=== PATIENT | female | born 2000 | race Two or more races ===

== ENCOUNTER 2024-11-24 15:45 | Emergency (ER) | payer BC ==
[~2024-11-24] VITALS: Ht 160 cm; Wt 78.0 kg
[2024-11-24] MEDS ORDERED: LEXAPRO20 MG (16:12)
[2024-11-24] MEDS ORDERED: FAMOTIDINE/PF 20 MG in 0.9 % SODIUM CHLORIDE 8 ML IV PUSH STA (16:41)
[2024-11-24] MEDS ORDERED: HYOSCYAMINE SULFATE 0.125 MG TAB.SUBL SL ONE (16:45)
[2024-11-24] MEDS ORDERED: 0.9 % SODIUM CHLORIDE 1,000 ML IV SCH (16:45)
[2024-11-24] MEDS ORDERED: ONDANSETRON HCL 2 MG/ML VIAL IV ONE (16:45)
[2024-11-24 17:30] LABS: HEMATOCRIT 33.2 % (36.0-45.00); HEMOGLOBIN 10.8 g/dL (12.0-15.00); MEAN CELL VOLUME 78.4 fL (80.00-100.00); MEAN CORPUSCULAR HEMOGLOBIN 25.5 pg (27.00-32.0); MEAN CORPUSCULAR HGB CONC 32.5 g/dl (32.0-36.0); PLATELET COUNT 296 K/uL (150-450); RED BLOOD COUNT 4.24 M/uL (4.00-6.00); RED CELL DISTRIBUTION WIDTH 16.4 % (11.5-14.5)
[2024-11-24 17:52] LABS: ALBUMIN 3.9 gm/dL (3.4-5.0); BILIRUBIN TOTAL 0.51 mg/dL (0.3-1.2); CALCIUM 8.9 mg/dL (8.5-10.1); CREATININE SERUM 0.71 mg/dL (0.55-1.02); GFR 99.51; GLOBULINA 4.3 G/DL (2.4-3.5); POTASSIUM 4.16 mEq/L (3.5-5.1); TOTAL PROTEIN 8.2 gm/dL (6.4-8.2)
[2024-11-24] MEDS ORDERED: PEPCID AC20 MG PO (18:51)
[2024-11-24] MEDS ORDERED: ONDANSETRON ODT8 MG PO (18:51)
== END 2024-11-24 19:04 | disposition home or self-care (01) ==
LOC: ER 15:47
PROVIDERS: General Practice
DX: K52.9 Noninfective gastroenteritis and colitis, unspecified (principal)